=== PATIENT | male | born 1930 | race Caucasian/White ===

== ENCOUNTER 2021-04-06 14:50 | Inpatient (IN) | payer MEDICAID ==
[~2021-04-06] VITALS: Ht 182.9 cm; Wt 80.3 kg
[2021-04-06] MEDS ORDERED: SODIUM CHLORIDE 0.9% 1,000 ML IV ONE (15:30)
[2021-04-06 16:13] LABS: HEMATOCRIT. 32.5 % (42.0-52.0); HEMOGLOBIN. 10.7 g/dL (14.0-18.0); MEAN CORPUSCULAR HEMOGLOBIN 27.4 pg (28.0-32.0); MEAN PLATELET VOLUME 8.2 fl (7.4-10.4); PLATELET 202 x1000/uL (130-400); RED BLOOD CELL COUNT 3.91 mill/uL (4.7-6.1); RED CELL DISTRIBUTION WIDTH 13.5 % (11.6-14.6)
[2021-04-06 16:22] LABS: CHLORIDE 107 mEq/L (98-107)
[2021-04-06 16:47] LABS: PLATELET ESTIMATE NORMAL
[2021-04-06] MEDS ORDERED: CEFTRIAXONE 1 G PREMIX 50 ML IV ONE (18:45)
[2021-04-06] MEDS ORDERED: AZITHROMYCIN 500MG/250ML 250 ML IV ONE (21:30)
[2021-04-06] MEDS ORDERED: LEVOFLOXACIN 500MG PREMIX 100 ML IV NR (21:45)
[2021-04-06] MEDS ORDERED: CLONIDINE 0.1MG TABLET PO PRN (21:45)
[2021-04-06] MEDS ORDERED: IPRATROPIUM/ALBUTEROL 0.5-3(2.5)MG/3ML NEB NEB PRN (21:45)
[2021-04-06] MEDS ORDERED: ZOLPIDEM TARTRATE 5MG TABLET PO PRN (21:45)
[2021-04-06] MEDS ORDERED: NITROGLYCERIN 0.4MG TABLET SL SL PRN (21:45)
[2021-04-06] MEDS ORDERED: DOCUSATE SODIUM 100MG CAPSULE PO PRN (21:45)
[2021-04-06] MEDS ORDERED: GUAIFENESIN 200MG/10ML SUGAR FREE UDC PO PRN (21:45)
[2021-04-06] MEDS ORDERED: ONDANSETRON HCL 4MG/2ML INJ IV PRN (21:45)
[2021-04-06] MEDS ORDERED: MAGNESIUM/ALUMINUM HYDROXIDE/SIMETHICONE 30ML UDC PO PRN (21:45)
[2021-04-06] MEDS ORDERED: ACETAMINOPHEN 325MG TABLET PO PRN ×2 (21:45)
[2021-04-06] MEDS ORDERED: CEFTRIAXONE 1 G PREMIX 50 ML IV NR (22:00)
[2021-04-06] MEDS: SODIUM CHLORIDE 0.9% 1,000 ML IV SCH ×2 (22:43→23:12)
[2021-04-06 22:56] LABS: VITAMIN B12 SERUM 185 pg/mL (211-911)
[2021-04-06 22:58] LABS: FOLIC ACID (FOLATE) SERUM > 20.00 ng/mL (>5.38)
[2021-04-06] MEDS: FAMOTIDINE 20MG TABLET PO SCH (22:59)
[2021-04-06] MEDS: ENOXAPARIN 30MG/0.3ML SYR SUBCUT SCH (22:59)
[2021-04-06 23:58] LABS: CLARITY URINE CLEAR (CLEAR); COLOR URINE YELLOW (YELLOW); KETONES URINE NEGATIVE (NEGATIVE); LEUKOCYTE ESTERASE URINE 2+ (NEGATIVE); NITRITE URINE POSITIVE (NEGATIVE); OCCULT BLOOD URINE 1+ (NEGATIVE); PROTEIN URINE 1+ (NEGATIVE); SPECIFIC GRAVITY URINE 1.014 (1.005-1.030); UROBILINOGEN URINE 0.2 E.U./dL (0.2-1.0)
[2021-04-07] VITALS (7 sets, daily range): BP systolic 96–139; BP diastolic 43–73
[2021-04-07 00:09] LABS: *AMPHETAMINES SCREEN URINE NEGATIVE (NEGATIVE); *BARBITURATES SCREEN URINE NEGATIVE (NEGATIVE)
[2021-04-07 00:10] LABS: *BENZODIAZEPINES SCREEN URINE NEGATIVE (NEGATIVE); *COCAINE SCREEN URINE NEGATIVE (NEGATIVE); METHADONE URINE SCREEN NEGATIVE (NEGATIVE); OPIATES URINE SCREEN NEGATIVE (NEGATIVE); PHENCYCLIDINE URINE SCREEN NEGATIVE (NEGATIVE)
[2021-04-07 00:11] LABS: CANNABINOID URINE SCREEN NEGATIVE (NEGATIVE)
[2021-04-07 00:33] LABS: CREATINE KINASE 268 IU/L (39-308)
[2021-04-07 00:34] LABS: CREATINE KINASE MB FRACTION 1.8 ng/mL (0.5-3.6)
[2021-04-07 07:59] LABS: BASOPHILS % 0.3 % (0.0-2.0); EOSINOPHILS % 0.2 % (0.0-5.0); LYMPHOCYTES % 15.5 % (20.0-50.0); MEAN CORPUSCULAR HEMOGLOBIN 29.1 pg (28.0-32.0); MEAN CORPUSCULAR VOLUME 83.9 fL (80.0-94.0); MEAN PLATELET VOLUME 8.3 fl (7.4-10.4); MONOCYTES % 11.1 % (2.0-8.0); NEUTROPHILS % 72.9 % (40.0-76.0); PLATELET 246 x1000/uL (130-400); RED BLOOD CELL COUNT 4.44 mill/uL (4.7-6.1); RED CELL DISTRIBUTION WIDTH 13.5 % (11.6-14.6)
[2021-04-07 08:12] LABS: HEMATOCRIT. 37.2 % (42.0-52.0); HEMOGLOBIN. 12.9 g/dL (14.0-18.0)
[2021-04-07 08:15] LABS: CHLORIDE 108 mEq/L (98-107)
[2021-04-07 08:22] LABS: PHOSPHORUS 1.7 mg/dL (2.5-4.9)
[2021-04-07 08:23] LABS: CREATINE KINASE 475 IU/L (39-308)
[2021-04-07 08:27] LABS: CREATINE KINASE MB FRACTION 2.3 ng/mL (0.5-3.6)
[2021-04-07] MEDS: CHOLECALCIFEROL (D3) 1000 UNIT TABLET PO SCH (08:49)
[2021-04-07] MEDS: ASCORBIC ACID 500 MG TABLET PO SCH ×2 (08:49→21:59)
[2021-04-07] MEDS: ZINC SULFATE 220 MG ( 50 ) CAPSULE PO SCH (08:49)
[2021-04-07] MEDS: ASPIRIN 325MG EC TABLET PO SCH (08:50)
[2021-04-07] MEDS ORDERED: CEFTRIAXONE 1 G PREMIX 50 ML IV SCH (09:00)
[2021-04-07] MEDS ORDERED: POTASSIUM CHLORIDE 20MEQ/PACKET PO NR (10:00)
[2021-04-07] MEDS: SODIUM CHLORIDE 0.9% 1,000 ML IV SCH ×2 (10:12→23:16)
[2021-04-07] MEDS ORDERED: MAGNESIUM 1 G PREMIX 100 ML IV NR (11:00)
[2021-04-07] MEDS: LEVOFLOXACIN 250MG PREMIX 50 ML IV SCH (11:18)
[2021-04-07] MEDS: CEFTRIAXONE 1,000 MG in DEXTROSE 5% WATER 50 ML IV SCH (11:18)
[2021-04-07] MEDS: AZITHROMYCIN 500 MG in DEXT 5% WATER 250 ML IV SCH (16:03)
[2021-04-07] MEDS: CYANOCOBALAMIN 1000MCG/ML VIAL IM SCH (17:40)
[2021-04-07] MEDS: ENOXAPARIN 30MG/0.3ML SYR SUBCUT SCH (21:59)
[2021-04-07] MEDS: FAMOTIDINE 20MG TABLET PO SCH (21:59)
[2021-04-08] VITALS: BP 107/55
[2021-04-08 04:00] VITALS: BP 101/47
[2021-04-08 08:00] VITALS: BP 100/50
[2021-04-08] MEDS: CYANOCOBALAMIN 1000MCG/ML VIAL IM SCH (09:18)
[2021-04-08] MEDS: ASCORBIC ACID 500 MG TABLET PO SCH ×2 (09:18→20:48)
[2021-04-08] MEDS: ASPIRIN 325MG EC TABLET PO SCH (09:18)
[2021-04-08] MEDS: CHOLECALCIFEROL (D3) 1000 UNIT TABLET PO SCH (09:18)
[2021-04-08] MEDS: ZINC SULFATE 220 MG ( 50 ) CAPSULE PO SCH (09:18)
[2021-04-08] MEDS: CEFTRIAXONE 1,000 MG in DEXTROSE 5% WATER 50 ML IV SCH (11:05)
[2021-04-08] MEDS: LEVOFLOXACIN 250MG PREMIX 50 ML IV SCH (11:06)
[2021-04-08 12:00] VITALS: BP 103/55
[2021-04-08] MEDS: SODIUM CHLORIDE 0.9% 1,000 ML IV SCH (13:25)
[2021-04-08] MEDS: AZITHROMYCIN 500 MG in DEXT 5% WATER 250 ML IV SCH (14:31)
[2021-04-08 16:00] VITALS: BP 103/47
[2021-04-08 20:00] VITALS: BP 110/54
[2021-04-08] MEDS: FAMOTIDINE 20MG TABLET PO SCH (20:48)
[2021-04-08] MEDS: ENOXAPARIN 30MG/0.3ML SYR SUBCUT SCH (20:49)
[2021-04-09] VITALS: BP 118/56
[2021-04-09] MEDS: SODIUM CHLORIDE 0.9% 1,000 ML IV SCH ×2 (01:27→16:19)
[2021-04-09 04:00] VITALS: BP 110/53
[2021-04-09 08:30] VITALS: BP 97/51
[2021-04-09] MEDS: ZINC SULFATE 220 MG ( 50 ) CAPSULE PO SCH (09:24)
[2021-04-09] MEDS: CHOLECALCIFEROL (D3) 1000 UNIT TABLET PO SCH (09:24)
[2021-04-09] MEDS: CYANOCOBALAMIN 1000MCG/ML VIAL IM SCH (09:24)
[2021-04-09] MEDS: AZITHROMYCIN 500 MG TABLET PO SCH (09:24)
[2021-04-09] MEDS: ASCORBIC ACID 500 MG TABLET PO SCH ×2 (09:24→21:06)
[2021-04-09] MEDS: ASPIRIN 325MG EC TABLET PO SCH (09:24)
[2021-04-09] MEDS: CEFTRIAXONE 1,000 MG in DEXTROSE 5% WATER 50 ML IV SCH (11:03)
[2021-04-09] MEDS: LEVOFLOXACIN 250MG TABLET PO SCH (11:03)
[2021-04-09 12:30] VITALS: BP 113/54
[2021-04-09] MEDS ORDERED: AZITHROMYCIN 500 MG in DEXT 5% WATER 250 ML IV SCH (14:00)
[2021-04-09 16:20] VITALS: BP 108/56
[2021-04-09] MEDS: FAMOTIDINE 20MG TABLET PO SCH (21:06)
[2021-04-09] MEDS: ENOXAPARIN 30MG/0.3ML SYR SUBCUT SCH (21:06)
[2021-04-09 22:48] VITALS: BP 135/52
[2021-04-10] VITALS: BP 123/52
[2021-04-10 03:37] VITALS: BP 116/53
[2021-04-10] MEDS: SODIUM CHLORIDE 0.9% 1,000 ML IV SCH (04:59)
[2021-04-10 08:00] VITALS: BP 111/47
[2021-04-10] MEDS: ZINC SULFATE 220 MG ( 50 ) CAPSULE PO SCH (08:22)
[2021-04-10] MEDS: ASCORBIC ACID 500 MG TABLET PO SCH (08:22)
[2021-04-10] MEDS: CHOLECALCIFEROL (D3) 1000 UNIT TABLET PO SCH (08:22)
[2021-04-10] MEDS: AZITHROMYCIN 500 MG TABLET PO SCH (08:22)
[2021-04-10] MEDS: ASPIRIN 325MG EC TABLET PO SCH (08:22)
[2021-04-10] MEDS: CYANOCOBALAMIN 1000MCG/ML VIAL IM SCH (08:24)
[2021-04-10] MEDS: CEFTRIAXONE 1,000 MG in DEXTROSE 5% WATER 50 ML IV SCH (11:01)
[2021-04-10] MEDS: LEVOFLOXACIN 250MG TABLET PO SCH (11:02)
[2021-04-10 11:39] VITALS: BP 123/54
[2021-04-10 12:00] VITALS: BP 123/54
== END 2021-04-10 14:12 | disposition home or self-care (01) | DRG 720 ==
LOC: ER 14:50 → 6WST 21:36 → EDBEDREQTM 21:41 → EDBEDREQ 21:41 → ENRESERV 21:47
PROVIDERS: ADMIT Internal Medicine; ATTEND Internal Medicine
DX: A41.9 Sepsis, unspecified organism (principal); N17.0 Acute kidney failure with tubular necrosis; G92.8 Other toxic encephalopathy; E44.1 Mild protein-calorie malnutrition; I10 Essential (primary) hypertension; D51.9 Vitamin B12 deficiency anemia, unspecified; Z20.822 Contact with and (suspected) exposure to COVID-19; N39.0 Urinary tract infection, site not specified; R73.09 Other abnormal glucose; Z68.24 Body mass index [BMI] 24.0-24.9, adult
CPT/HCPCS: 36415; 71045; 74176; 80053; 80061; 80305; 81003; 82550; 82553; 82607; 82746; 83036; 83540; 83550; 83605; 83735; 83880; 84100; 84443; 84484; 85025; 87077; 87186; 87426; 93005; 93970; 97162; 97166; 97530; 97535; 99285; C1893; J0456; J0696; J1650; J1956; J3420; J3475; J7030; J7060; A4315